=== PATIENT | female | born 1985 | race Two or more races ===

== ENCOUNTER → 2019-12-23 | Outpatient (CLI) | payer OTHER | END | disposition home or self-care (01) | LOC: PRENATAL 15:43 | DX: O26.851 Spotting complicating pregnancy, first trimester (principal); O36.80X1 Pregnancy with inconclusive fetal viability, fetus 1; O99.89 Other specified diseases and conditions complicating pregnancy, childbirth and the puerperium ==

== ENCOUNTER 2019-12-31 08:10 | Day surgery (SDC) | payer OTHER | END 2019-12-31 21:29 | disposition home or self-care (01) | LOC: CIR.AMB 08:10 | DX: O02.1 Missed abortion (principal) ==

== ENCOUNTER 2020-10-04 10:40 | Emergency (ER) | payer OTHER ==
[~2020-10-04] VITALS: Ht 167.6 cm; Wt 73.0 kg
[2020-10-04] MEDS ORDERED: PRENA1 TRUE CO1 EACH (11:30)
== END 2020-10-04 15:32 | disposition home or self-care (01) ==
LOC: ER 10:40
DX: O20.8 Other hemorrhage in early pregnancy (principal); Z3A.01 Less than 8 weeks gestation of pregnancy; Z20.822 Contact with and (suspected) exposure to COVID-19

== ENCOUNTER 2020-11-05 12:17 | Day surgery (SDC) | payer OTHER ==
[~2020-11-05 12:17] MED LIST: PRENA1 TRUE CO1 EACH
[2020-11-05] MEDS ORDERED: KETO10TA2 PO (16:12)
[2020-11-05] MEDS ORDERED: MONDOXYNE NL100 MG PO (16:12)
== END 2020-11-05 17:20 | disposition home or self-care (01) ==
LOC: CIR.AMB 12:17
PROVIDERS: ATTEND Obstetrics & Gynecology
DX: O02.1 Missed abortion (principal); Z20.822 Contact with and (suspected) exposure to COVID-19

== ENCOUNTER 2022-01-17 10:41 | Outpatient (CLI) | payer OTHER ==
[~2022-01-17 10:41] MED LIST changes: +KETO10TA2 PO; +MONDOXYNE NL100 MG PO
== END 2022-01-17 11:25 | disposition home or self-care (01) ==
LOC: PRENATAL 10:41
PROVIDERS: ATTEND Obstetrics & Gynecology Maternal & Fetal Medicine
DX: O36.80X0 Pregnancy with inconclusive fetal viability, not applicable or unspecified (principal); O26.20 Pregnancy care for patient with recurrent pregnancy loss, unspecified trimester; O09.529 Supervision of elderly multigravida, unspecified trimester; O34.219 Maternal care for unspecified type scar from previous cesarean delivery

== ENCOUNTER 2022-02-02 15:21 | Emergency (ER) | payer OTHER ==
[~2022-02-02] VITALS: Ht 172.7 cm; Wt 79.4 kg
== END 2022-02-02 20:59 | disposition left against medical advice (07) ==
LOC: ER 15:21
DX: O20.9 Hemorrhage in early pregnancy, unspecified (principal); Z91.048 Other nonmedicinal substance allergy status; J45.909 Unspecified asthma, uncomplicated